=== PATIENT | male | born 1975 | race African-American/Black ===

== ENCOUNTER 2018-09-09 20:19 | Emergency (ER) | payer OTHER ==
[~2018-09-09] VITALS: Ht 193 cm; Wt 107.5 kg
[2018-09-09 20:50] LABS: ABSOLUTE NEUTROPHILS 4.9 thou/uL (1.4-8.2); BASOPHILS 0.9 % (0.0-2.0); EOSINOPHILS 2.8 % (0.0-3.0); HEMATOCRIT 42.1 % (42.0-52.0); LYMPHOCYTES 29.3 % (24.0-44.0); MCHC 33.3 g/dL (28.0-37.0); MONOCYTES 6.2 % (1.0-8.0); PLATELET COUNT 217 thou/uL (150-400); POLYS 60.8 % (36.0-66.0); RBC 4.84 mil/uL (4.50-6.00); RDW 15.4 % (10.5-14.5); WBC 8.1 thou/uL (4.0-11.0)
[2018-09-09 20:51] LABS: URINE BILIRUBIN NEGATIVE (Negative); URINE BLOOD 2+ (Negative); URINE CLARITY CLEAR; URINE COLOR YELLOW; URINE GLUCOSE-RANDOM* NEGATIVE (Negative); URINE KETONES NEGATIVE (Negative); URINE LEUKOCYTES-REFLEX NEGATIVE (Negative); URINE NITRITE-REFLEX NEGATIVE (Negative); URINE PROTEIN (DIPSTICK) NEGATIVE (Negative); URINE SPECIFIC GRAVITY 1.025 (1.005-1.035); URINE UROBILINOGEN 0.2 E.U./dl (0.2-1.0)
[2018-09-09 20:56] LABS: CREATININE 1.2 mg/dL (0.7-1.3)
[2018-09-09 21:06] LABS: ALBUMIN 3.5 g/dL (3.4-5.0); TOTAL BILIRUBIN 0.2 mg/dL (<0.1-1.0); TOTAL PROTEIN 7.3 g/dL (6.4-8.2)
[2018-09-09 21:09] LABS: CASTS None Seen /LPF (None Seen); SQUAMOUS None Seen /LPF (0-3); URINE RBC 3-10 Few /HPF (0-2); URINE WBC-REFLEX 0-5 Rare /HPF (0-5)
[2018-09-09 21:10] LABS: BACTERIA-REFLEX None Seen /HPF (None Seen); CRYSTALS None Seen /LPF (None Seen)
[2018-09-09] MEDS ORDERED: NORCO 10-325 T1 EACH PO (21:54)
[2018-09-09] MEDS ORDERED: SENNA8.6 MG PO (21:56)
[2018-09-09 22:29] VITALS: BP 141/91
== END 2018-09-09 22:30 | disposition home or self-care (01) ==
LOC: ER 20:19
PROVIDERS: Physician Assistant
DX: R10.31 Right lower quadrant pain (principal); N50.811 Right testicular pain; R31.9 Hematuria, unspecified

== ENCOUNTER 2018-09-29 09:13 | Emergency (ER) | payer OTHER ==
[~2018-09-29] VITALS: Ht 193 cm; Wt 108.0 kg
[~2018-09-29 09:13] MED LIST: NORCO 10-325 T1 EACH PO; SENNA8.6 MG PO
[2018-09-29 09:38] LABS: URINE BLOOD 2+ (Negative); URINE CLARITY CLEAR; URINE COLOR YELLOW; URINE GLUCOSE-RANDOM* NEGATIVE (Negative); URINE KETONES TRACE (Negative); URINE LEUKOCYTES-REFLEX NEGATIVE (Negative); URINE NITRITE-REFLEX NEGATIVE (Negative); URINE PROTEIN (DIPSTICK) 2+ (Negative); URINE SPECIFIC GRAVITY >= 1.030 (1.005-1.035); URINE UROBILINOGEN 0.2 E.U./dl (0.2-1.0)
[2018-09-29 09:41] LABS: ICTOTEST (BILI CONFIRMATORY) Negative (Negative); URINE BILIRUBIN NEGATIVE (Negative)
[2018-09-29 09:48] LABS: ABSOLUTE NEUTROPHILS 5.1 thou/uL (1.4-8.2); BASOPHILS 0.7 % (0.0-2.0); EOSINOPHILS 2.8 % (0.0-3.0); HEMATOCRIT 45.6 % (42.0-52.0); HEMOGLOBIN 15.1 gm/dL (14.0-18.0); MCH 28.6 pg (26.0-34.0); MCHC 33.1 g/dL (28.0-37.0); MCV 86.4 fL (80.0-100.0); MONOCYTES 4.9 % (1.0-8.0); PLATELET COUNT 209 thou/uL (150-400); POLYS 67.6 % (36.0-66.0); RBC 5.28 mil/uL (4.50-6.00); RDW 14.9 % (10.5-14.5); WBC 7.5 thou/uL (4.0-11.0)
[2018-09-29 09:51] LABS: CALCIUM 9.4 mg/dL (8.5-10.1); CREATININE 1.3 mg/dL (0.7-1.3); POTASSIUM 3.9 mmol/L (3.5-5.1)
[2018-09-29 09:54] LABS: FINE GRANULAR CASTS 0-3 Few /LPF (None Seen); HYALINE CASTS 0-3 Few /LPF (None Seen); SQUAMOUS 0-3 Few /LPF (0-3)
[2018-09-29 09:55] LABS: BACTERIA-REFLEX 1-9 Few /HPF (None Seen); CRYSTALS None Seen /LPF (None Seen); URINE RBC 0-2 Rare /HPF (0-2); URINE WBC-REFLEX 6-15 Few /HPF (0-5)
[2018-09-29 09:57] LABS: ALBUMIN 4.2 g/dL (3.4-5.0); TOTAL BILIRUBIN 0.6 mg/dL (<0.1-1.0); TOTAL PROTEIN 7.8 g/dL (6.4-8.2)
[2018-09-29] MEDS ORDERED: NORCO 5-325 TA1 EACH PO (11:21)
[2018-09-29] MEDS ORDERED: KEFLEX500 M1 PO (11:37)
[2018-09-29] MEDS ORDERED: HYDROCHLOROTHIA25 M2 PO (11:37)
[2018-09-29 11:43] VITALS: BP 159/106
== END 2018-09-29 11:41 | disposition home or self-care (01) ==
LOC: ER 09:13
PROVIDERS: Emergency Medicine; Physician Assistant
DX: R10.9 Unspecified abdominal pain (principal); R11.0 Nausea; Z87.442 Personal history of urinary calculi

== ENCOUNTER 2020-03-10 10:04 | Emergency (ER) | payer OTHER ==
[~2020-03-10] VITALS: Ht 193 cm; Wt 107.5 kg
[~2020-03-10 10:04] MED LIST changes: +HYDROCHLOROTHIA25 M2 PO; +KEFLEX500 M1 PO; +NORCO 5-325 TA1 EACH PO
[2020-03-10 10:48] LABS: URINE BILIRUBIN NEGATIVE (Negative); URINE BLOOD 3+ (Negative); URINE CLARITY CLEAR; URINE COLOR YELLOW; URINE GLUCOSE-RANDOM* NEGATIVE (Negative); URINE KETONES NEGATIVE (Negative); URINE LEUKOCYTES-REFLEX NEGATIVE (Negative); URINE NITRITE-REFLEX NEGATIVE (Negative); URINE PROTEIN (DIPSTICK) 1+ (Negative); URINE SPECIFIC GRAVITY >= 1.030 (1.005-1.035); URINE UROBILINOGEN 0.2 E.U./dl (0.2-1.0)
[2020-03-10 11:08] LABS: BACTERIA-REFLEX 1-9 Few /HPF (None Seen); CASTS None Seen /LPF (None Seen); CRYSTALS None Seen /LPF (None Seen); SQUAMOUS 0-3 Few /LPF (0-3); URINE WBC-REFLEX 0-5 Rare /HPF (0-5)
[2020-03-10 11:16] LABS: ABSOLUTE NEUTROPHILS 3.4 thou/uL (1.4-8.2); BASOPHILS 0.8 % (0.0-2.0); EOSINOPHILS 0.7 % (0.0-3.0); HEMATOCRIT 44.2 % (42.0-52.0); HEMOGLOBIN 14.5 gm/dL (14.0-18.0); LYMPHOCYTES 31.6 % (24.0-44.0); MCH 28.6 pg (26.0-34.0); MCHC 32.8 g/dL (28.0-37.0); MCV 87.5 fL (80.0-100.0); MONOCYTES 5.3 % (1.0-8.0); PLATELET COUNT 179 thou/uL (150-400); POLYS 61.6 % (36.0-66.0); RBC 5.06 mil/uL (4.50-6.00); RDW 14.7 % (10.5-14.5); WBC 5.6 thou/uL (4.0-11.0)
[2020-03-10 11:27] LABS: ANION GAP 11 mmol/L (7-16); BUN 9 mg/dL (7-18); CALCIUM 8.8 mg/dL (8.5-10.1); CHLORIDE 105 mmol/L (98-107); CO2 28 mmol/L (21-32); CREATININE 1.3 mg/dL (0.7-1.3); GLUCOSE 88 mg/dL (74-106); POTASSIUM 4.1 mmol/L (3.5-5.1); SODIUM 144 mmol/L (136-145)
[2020-03-10 11:38] LABS: ALBUMIN 3.6 g/dL (3.4-5.0); LIPASE 94 U/L (73-393); SGOT 21 U/L (15-37); SGPT 29 U/L (30-65); TOTAL BILIRUBIN 0.4 mg/dL (0.2-1.0); TOTAL PROTEIN 7.5 g/dL (6.4-8.2); TROPONIN-I <0.06 ng/mL (<0.06)
[2020-03-10] MEDS ORDERED: BENTYL 20 MG TA20 M1 PO (12:25)
[2020-03-10 12:38] VITALS: BP 159/105
--- NOTE | 2020-03-10 15:35 | EKG ---
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: no : 1975 Requested By: Bijan Ballard Order Number: [id number] MD: Tristan Barrow Measurements Intervals [place] Rate: 77 P: 76 MS: 149 QRS: 30 QRSD: 88 T: -49 QT: 411 QTc: 466 Interpretive Statements Sinus rhythm Probable left atrial enlargement Borderline repolarization abnormality Baseline wander in lead(s) V2 No previous ECG available for comparison Electronically Signed On 03-10-2020 15:34:59 CDT by Tristan Barrow [email or web address] <ELECTRONICALLY SIGNED> By: Tristan Barrow MD, FACC 03/10/20 1534 1050 1050 Tristan Barrow MD, FAC /EPI
== END 2020-03-10 12:40 | disposition home or self-care (01) ==
LOC: ER 10:04
PROVIDERS: Emergency Medicine
DX: U07.1 COVID-19 (principal); N20.0 Calculus of kidney; Z79.899 Other long term (current) drug therapy

== ENCOUNTER 2020-10-11 22:17 | Emergency (ER) | payer OTHER ==
[~2020-10-11] VITALS: Ht 193 cm; Wt 106.6 kg
[~2020-10-11 22:17] MED LIST changes: +BENTYL 20 MG TA20 M1 PO
[2020-10-11 22:44] LABS: ABSOLUTE NEUTROPHILS 4.8 thou/uL (1.4-8.2); BASOPHILS 0.7 % (0.0-2.0); EOSINOPHILS 3.7 % (0.0-3.0); LYMPHOCYTES 28.8 % (24.0-44.0); MCH 29.3 pg (26.0-34.0); MCHC 33.3 g/dL (28.0-37.0); MONOCYTES 6.1 % (1.0-8.0); PLATELET COUNT 208 thou/uL (150-400); POLYS 60.7 % (36.0-66.0); RBC 4.77 mil/uL (4.50-6.00); RDW 15.2 % (10.5-14.5); WBC 7.8 thou/uL (4.0-11.0)
[2020-10-11 22:56] LABS: ANION GAP 4 mmol/L (7-16); BUN 16 mg/dL (7-18); CALCIUM 8.4 mg/dL (8.5-10.1); CHLORIDE 106 mmol/L (98-107); CO2 31 mmol/L (21-32); CREATININE 1.3 mg/dL (0.7-1.3); GLUCOSE 92 mg/dL (74-106); POTASSIUM 5.8 mmol/L (3.5-5.1); SODIUM 141 mmol/L (136-145)
[2020-10-11 23:04] LABS: ALBUMIN 3.4 g/dL (3.4-5.0); SGOT 23 U/L (15-37); SGPT 28 U/L (16-63); TOTAL BILIRUBIN 0.3 mg/dL (0.2-1.0); TOTAL PROTEIN 7.1 g/dL (6.4-8.2); TROPONIN-I <0.06 ng/mL (<0.06)
[2020-10-11 23:22] LABS: URINE BILIRUBIN NEGATIVE (Negative); URINE BLOOD 1+ (Negative); URINE CLARITY CLEAR; URINE COLOR YELLOW; URINE GLUCOSE-RANDOM* NEGATIVE (Negative); URINE KETONES NEGATIVE (Negative); URINE LEUKOCYTES-REFLEX NEGATIVE (Negative); URINE NITRITE-REFLEX NEGATIVE (Negative); URINE PROTEIN (DIPSTICK) NEGATIVE (Negative); URINE SPECIFIC GRAVITY 1.025 (1.005-1.035); URINE UROBILINOGEN 0.2 E.U./dl (0.2-1.0)
[2020-10-12 00:02] LABS: BACTERIA-REFLEX 1-9 Few /HPF (None Seen); CASTS None Seen /LPF (None Seen); CRYSTALS None Seen /LPF (None Seen); MUCUS 0-3 Light strn/LPF (None Seen); SQUAMOUS 0-3 Few /LPF (0-3); URINE RBC 3-10 Few /HPF (NONE SEEN); URINE WBC-REFLEX 0-5 Rare /HPF (0-5)
[2020-10-12] MEDS ORDERED: CIPROFLOXACIN500 M1 PO (02:30)
[2020-10-12] MEDS ORDERED: IBU600 MG PO (02:31)
[2020-10-12 03:29] VITALS: BP 148/98
--- NOTE | 2020-10-12 07:13 | EKG ---
[facility] [place] [address] ELECTROCARDIOGRAM REPORT Name: TACHO VELAZQUEZ Room #: DEP 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 OVALLES : 1975 Requested By: Anirudh Wilkins Order Number: [id number] MD: Tristan Barrow Measurements Intervals [place] Rate: 77 P: 62 [place]: 153 QRS: 19 QRSD: 94 T: -38 QT: 412 QTc: 467 Interpretive Statements Sinus rhythm Probable left atrial enlargement Probable left ventricular hypertrophy Nonspecific T abnormalities, inferior leads J Point elevation precordial leads Baseline wander in lead(s) I,II,aVR,aVF,V1,V2,V3,V6 Compared to ECG 03/10/2020 10:50:42 T-wave abnormality now present ST (T wave) deviation now present Electronically Signed On 10-12-2020 7:13:18 CDT by Tristan Barrow [email or web address] <ELECTRONICALLY SIGNED> By: Tristan Barrow MD, [facility] 10/12/20712 23 23 Tristan Barrow MD, [facility] /EPI
== END 2020-10-12 03:19 | disposition home or self-care (01) ==
LOC: ER
PROVIDERS: Emergency Medicine
DX: R07.89 Other chest pain (principal); N39.0 Urinary tract infection, site not specified; I10 Essential (primary) hypertension; Z87.442 Personal history of urinary calculi